=== PATIENT | female | born 1995 | race Caucasian/White ===

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

== ENCOUNTER → 2017-02-23 | Outpatient (CLI) | payer OTHER ==
[~2017-02-23] MED LIST changes: -LIDOCAINE 2% INJ 100 MG/5 ML SDV (FOR ANES.) As Ordered ONE; -NS 1,000 ML IV ONE; -PROPOFOL 500 MG/50 ML VIAL As Ordered ONE
--- NOTE | 2017-02-23 10:27 | REP ---
Gastric emptying nuclear scintigraphy: History: Nausea and vomiting Technique: 1.02 mCi of technetium-99m sulfur colloid was ingested in two scrambled eggs and 6 ounces of water and sequential anterior and posterior images are acquired for an 89-minute imaging observation period. Regions of interest are drawn around the stomach to plot gastric emptying. Scintigraphic findings: Expected T1/2 is 90 minutes. 17 % emptying is observed in this patient during the 89-minute imaging observation period, for a calculated T1/2 in this patient of 267 minutes. Impression: Markedly delayed gastric emptying. Signed by Rigoberto Torrez MD 02/23/2017 10:19 A
== END ==
LOC: M RAD 08:07
PROVIDERS: ATTEND Physician Assistant Medical
DX: K31.84 Gastroparesis (principal); K30 Functional dyspepsia

== ENCOUNTER → 2017-05-22 | Outpatient (REF) | payer OTHER ==
[2017-05-22 21:37] LABS: CHLAMYDIA DNA AMPLIFICATION POSITIVE (NEGATIVE); GC DNA AMPLIFICATION NEGATIVE (NEGATIVE)
== END ==
LOC: M SFHCWAGY 17:04
DX: Z20.2 Contact with and (suspected) exposure to infections with a predominantly sexual mode of transmission (principal)

== ENCOUNTER → 2018-04-08 | Outpatient (REF) | payer OTHER | LOC: M LAB REF 09:12 | DX: J00 Acute nasopharyngitis [common cold] (principal) ==

== ENCOUNTER → 2019-02-20 | Outpatient (CLI) | payer OTHER ==
--- NOTE | 2019-02-20 16:45 | REP ---
CERVICAL SPINE SERIES: Full cervical spine series was performed with 8 views obtained. Flexion, extension, and oblique views are included. There is no compression fracture or malalignment. There is normal cervical lordosis with no prevertebral soft-tissue swelling. Disc spaces are well preserved. Oblique views show no radiographic evidence of neural foraminal narrowing. IMPRESSION: Negative cervical spine series. Electronically Signed by Javier Gong MD 02/20/2019 06:44 P
--- NOTE | 2019-02-20 16:46 | REP ---
THORACIC SPINE, AP AND LATERAL: AP and lateral views of the thoracic spine are performed. There is no compression fracture or malalignment. There is normal thoracic kyphosis. No disc space narrowing is seen. The posterior elements are intact. There is minimal curvature toward the right. IMPRESSION: Essentially negative thoracic spine series. Electronically Signed by Javier Gong MD 02/20/2019 06:44 P
== END ==
LOC: M WUC 15:47
PROVIDERS: ATTEND Physician Assistant
DX: S29.012A Strain of muscle and tendon of back wall of thorax, initial encounter (principal); W18.30XA Fall on same level, unspecified, initial encounter; Y92.009 Unspecified place in unspecified non-institutional (private) residence as the place of occurrence of the external cause

== ENCOUNTER → 2019-05-20 | Outpatient (CLI) | payer OTHER ==
--- NOTE | 2019-05-20 13:12 | REP ---
INDICATION: Cevicalgia PROCEDURE: MRI cervical spine COMPARISON STUDIES: No prior similar studies FINDINGS: Cranial vertebral junction is unremarkable. Vertebral heights and disc heights are well preserved. No moose malalignments. Cervical cord appears normal in its course, caliber and signal characteristics. On review of axial images, At C2-3 no significant canal or foraminal narrowing. At C3-4 no significant canal or foraminal narrowing At C4-5 no significant canal or foraminal narrowing At C5-6 no significant canal or foraminal narrowing At C6-7 and C7-T1 no significant canal or foraminal narrowing. On the STIR images, no significant STIR signal abnormality to suggest soft tissue or ligamentous injury. IMPRESSION: No acute findings. Normal examination. Electronically Signed by Oral Damon MD 05/20/2019 01:04 P
== END ==
LOC: M RAD 07:18
PROVIDERS: ATTEND Physician Assistant
DX: M54.2 Cervicalgia (principal)

== ENCOUNTER → 2019-05-25 | Outpatient (REF) | payer OTHER | LOC: M LAB REF 17:40 | PROVIDERS: ATTEND Physician Assistant | DX: R11.2 Nausea with vomiting, unspecified (principal) ==